=== PATIENT | male | born 1955 | race Caucasian/White ===

== ENCOUNTER → 2017-09-08 | Outpatient (CLI) | payer MEDICARE ==
[~2017-09-08] MED LIST: ASPI325; CEPH500 PO; FLUO10 PO; HYDACE5; HYDACE5 PO; NAPR500 PO; OMEP10ER PO; PROM25 PO; PROM25S PR; SULTRIDS PO
== END ==
LOC: LAB SHORT 13:39 → PLD 13:39
DX: H61.001 Unspecified perichondritis of right external ear (principal)
CPT/HCPCS: 88305

== ENCOUNTER → 2018-05-20 | Outpatient (CLI) | payer MEDICARE | END | disposition home or self-care (01) | LOC: LAB 11:45 → LAB SHORT 11:45 | DX: L03.90 Cellulitis, unspecified (principal) | CPT/HCPCS: 87070; 87205 ==

== ENCOUNTER → 2018-06-15 | Outpatient (CLI) | payer MEDICARE | END | disposition home or self-care (01) | LOC: LAB SHORT 09:00 → PLD 09:00 | DX: D36.10 Benign neoplasm of peripheral nerves and autonomic nervous system, unspecified (principal) | CPT/HCPCS: 88305 ==

== ENCOUNTER → 2019-04-14 | Outpatient (CLI) | payer MEDICARE | END | disposition home or self-care (01) | LOC: PLD 08:12 → LAB SHORT 08:12 | DX: H71.01 Cholesteatoma of attic, right ear (principal) | CPT/HCPCS: 88305 ==